=== PATIENT | male | born 1985 | race Two or more races ===

== ENCOUNTER 2017-08-20 22:39 | Emergency (ER) | payer MEDICAID ==
[~2017-08-20] VITALS: Ht 175.3 cm; Wt 79.4 kg
[2017-08-20 22:50] VITALS: BP 123/86
[2017-08-20 23:00] VITALS: BP 123/86
--- NOTE | 2017-08-20 23:11 | Emergency Room Report ---
History of Present Illness General Chief Complaint: Behavioral Complaint Source: Patient Present Illness HPI Is a 32-year-old male with no significant past medical history. He denies any drug use. He said he hasn't used drugs over 36 hours. Admit to methamphetamine use. He presents with chief complaint of feeling anxious. Said that people are following him. Denies suicidal thought homicidal thought. Denies any other complaint. Asking for Ativan. Allergies: Coded Allergies: No Known Allergies (Unverified , 08/20/17) Patient History Past Medical History: see triage record, old chart reviewed Past Surgical History: none Family History: none Social History: tobacco use, drug use Immunizations: other Reviewed Nursing Documentation: PMH: Agreed, PSxH: Agreed Review of Systems ENT: Denies: sore throat Cardiovascular: Denies: chest pain, palpitations Gastrointestinal/Abdominal: Denies: nausea, vomiting, diarrhea Musculoskeletal: Denies: back problems Skin: Denies: rash Neurological: Denies: ARCOS, seizures All Other Systems: negative except mentioned in HPI Physical Exam Vital Signs Date Time Temp Pulse Resp B/P (MAP) Pulse Ox O2 Delivery O2 Flow Rate FiO2 08/20/17 22:49 97.2 100 22 123/86 99 Room Air vitals normal Sp02 EP Interpretation: reviewed, normal General Appearance: alert/responsive, no apparent distress, non-toxic Head: normocephalic, atraumatic Eyes: PERRL, EOMI ENT: oropharynx normal Neck: supple/symm/no masses Respiratory: effort normal, no rhonchi, no wheezing Cardiovascular: no murmur, gallop, rub Gastrointestinal: non-tender, no mass, non-distended, no rebound/guarding, normal bowel sounds Musculoskeletal: gait & station normal Neurologic: oriented x3, sensory intact, motor strength/tone normal Skin: no rash, normal palpation Medical Decision Making Diagnostic Impression: Primary Impression: Methamphetamine abuse Additional Impression: Paranoia (psychosis) ER Course Patient presents with paranoia from drug abuse. No suicidal thought homicidal thought. No criteria for 5150. This patient is a chronic risk of self injury due to poor impulse control, limited coping skills, and judgment intermittently impaired by intoxication. I believe that the available clinical evidence to suggest that these characteristics derived primarily from personality disorder and are likely very stable over time. Hospitalization would likely attenuate risk of self-harm only during snf period, without lasting risk reduction. Serious self-harm , while possible, would likely be inadvertent, and because of impulsivity, and foreseeable. For these reasons, I do not believe hospitalization would provide meaningful reduction in risk of self-harm. Last Vital Signs Date Time Temp Pulse Resp B/P (MAP) Pulse Ox O2 Delivery O2 Flow Rate FiO2 08/20/17 22:49 97.2 100 22 123/86 99 Room Air Status: unchanged Disposition: HOME, SELF-CARE Condition: Stable Patient Instructions: Self-Destructive Behavior Additional Instructions: abstain from drugs and alcohol. Followup with mental health in a week. return if worse. JAZMYNE ZHANG M.D. Aug 20, 2017 23:11
== END 2017-08-20 23:00 | disposition home or self-care (01) ==
LOC: EMR 22:57
DX: F15.10 Other stimulant abuse, uncomplicated (principal); F22 Delusional disorders
CPT/HCPCS: 99282